=== PATIENT | male | born 1990 | race Hispanic/Latino ===

== ENCOUNTER 2019-02-11 01:33 | Emergency (ER) | payer SELFPAY ==
[2019-02-11 01:53] LABS: APPEARANCE,URINE Clear (CLEAR); BILIRUBIN,URINE Negative (NEGATIVE); COLOR,URINE Yellow (YELLOW); GLUCOSE, URINE (UA) Negative (NEGATIVE); KETONES,URINE Negative (NEGATIVE); LEUKOCYTE ESTERASE ,URINE Negative (NEGATIVE); NITRATE,URINE Negative (NEGATIVE); OCCULT BLOOD,URINE Negative (NEGATIVE); PH,URINE 6.5 (5.0-8.0); PROTEIN,URINE Negative (NEGATIVE); UROBILINOGEN,URINE 0.2 mg/dL (0.2-1.0)
[2019-02-11 01:54] LABS: BASOPHILS % (AUTO) 1.2 % (0.0-5.0); EOSINOPHILS % (AUTO) 0.8 % (0.0-8.0); HEMATOCRIT 42.6 % (42-54); LYMPHOCYTES % (AUTO) 21.1 % (21.0-51.0); MEAN CORPUSCULAR HEMOGLOBIN 30.1 pg (27.0-33.0); MEAN CORPUSCULAR HGB CONC 33.8 g/dL (32.0-36.0); MEAN CORPUSCULAR VOLUME 89.3 fL (79-99); MONOCYTES % (AUTO) 7.2 % (3.0-13.0); NEUTROPHILS % (AUTO) 69.7 % (40.0-77.0); NUCLEATED RED BLOOD CELLS 0.1 % (0.0-0.19); PLATELET COUNT (AUTO) 325 K/uL (130-400); RED BLOOD CELL COUNT(AUTO) 4.77 MIL/uL (4.50-6.20); RED CELL DISTRIBUTION WIDTH 12.7 % (11.0-15.5); WHITE BLOOD COUNT (AUTO) 7.9 K/uL (4.8-10.8)
[2019-02-11 02:01] LABS: AMPHET/METH SCREEN,URINE NEGATIVE (NEGATIVE); BARBITURATE SCREEN, URINE NEGATIVE (NEGATIVE); BENZODIAZEPINES SCREEN,URINE NEGATIVE (NEGATIVE); CANNABINOID SCREEN,URINE NEGATIVE (NEGATIVE); COCAINE SCREEN,URINE NEGATIVE (NEGATIVE); OPIATE SCREEN,URINE NEGATIVE (NEGATIVE); PHENCYCLIDINE SCREEN,URINE NEGATIVE (NEGATIVE)
[2019-02-11 02:02] LABS: CARBON DIOXIDE 30 mmol/L (21-32); CHLORIDE 96 mmol/L (101-111); GLOMERULAR FILTR. RATE CALC 95 mL/min (>60); GLUCOSE,RANDOM 111 mg/dL (70-105); POTASSIUM 3.5 mmol/L (3.5-5.1); SODIUM SERUM 135 mmol/L (136-145); UREA NITROGEN, BLOOD 10 mg/dL (7-18)
[2019-02-11 02:06] LABS: ALANINE AMINOTRANSFERASE 76 U/L (12-78); ALBUMIN 4.2 g/dL (3.5-5.0); ASPARTATE AMINOTRANSFERASE 58 U/L (10-37); BILIRUBIN,TOTAL 0.9 mg/dL (0.2-1.0); TOTAL PROTEIN, SERUM 7.8 g/dL (6.0-8.3)
[2019-02-11 02:08] LABS: SALICYLATE < 2.8 mg/dL (2.8-20.0)
[2019-02-11 02:09] LABS: ACETAMINOPHEN < 1 mcg/mL (10-29); ALCOHOL, BLOOD 226 mg/dL (0-10)
== END 2019-02-11 04:11 | disposition home or self-care (01) ==
LOC: EDH 01:33
DX: F10.129 Alcohol abuse with intoxication, unspecified (principal); R45.851 Suicidal ideations; F32.9 Major depressive disorder, single episode, unspecified; Z72.0 Tobacco use
CPT/HCPCS: 36415; 80053; 80305; 81003; 85025; 93005; 99285; G0480 ×2; G0481

== ENCOUNTER 2021-09-24 05:51 | Emergency (ER) | payer OTHER ==
[~2021-09-24] VITALS: Ht 175.3 cm; Wt 88.5 kg
[2021-09-24 06:24] LABS: POTASSIUM 3.8 mmol/L (3.5-5.1)
[2021-09-24] MEDS ORDERED: CLINDAMYCIN IVPB 600MG/50ML 50 ML IV ONE (06:24)
[2021-09-24 06:25] LABS: BASOPHILS % (AUTO) 0.3 % (0.0-5.0); EOSINOPHILS % (AUTO) 0.7 % (0.0-8.0); HEMATOCRIT 50.9 % (42-54); LYMPHOCYTES % (AUTO) 8.2 % (21.0-51.0); MEAN CORPUSCULAR HEMOGLOBIN 29.1 pg (27.0-33.0); MEAN CORPUSCULAR VOLUME 88.1 fL (79-99); MONOCYTES % (AUTO) 3.8 % (3.0-13.0); NEUTROPHILS % (AUTO) 86.5 % (40.0-77.0); PLATELET COUNT (AUTO) 381 K/uL (130-400); RED BLOOD CELL COUNT(AUTO) 5.78 MIL/uL (4.50-6.20); RED CELL DISTRIBUTION WIDTH 11.9 % (11.0-15.5); WHITE BLOOD COUNT (AUTO) 19.3 K/uL (4.8-10.8)
[2021-09-24 06:41] LABS: BILIRUBIN,TOTAL 1.1 mg/dL (0.2-1.0); TOTAL PROTEIN, SERUM 8.4 g/dL (6.0-8.3)
[2021-09-24] MEDS ORDERED: KETOROLAC 30MG VIAL (30MG/ML) IV SCH (07:00)
[2021-09-24] MEDS ORDERED: 0.9%NACL 1000ML 1,000 ML IV SCH (07:00)
[2021-09-24 07:15] VITALS: BP 129/84
[2021-09-24] MEDS ORDERED: IBUP-2070 PO (07:41)
[2021-09-24] MEDS ORDERED: SULF1TAB42 PO (07:41)
[2021-09-24] MEDS ORDERED: CLINDAMYCIN IVPB 600MG/50ML 50 ML IV SCH (14:00)
== END 2021-09-24 08:04 | disposition home or self-care (01) ==
LOC: EDH 05:51
DX: L03.211 Cellulitis of face (principal); L02.01 Cutaneous abscess of face; Z79.1 Long term (current) use of non-steroidal anti-inflammatories (NSAID)
CPT/HCPCS: 10060; 36415; 80053; 83605; 85025; 87040 ×2; 96365; 96375; 99284; J1885; J3490; 41800

== ENCOUNTER 2022-10-22 02:58 | Emergency (ER) | payer OTHER ==
[~2022-10-22] VITALS: Ht 172.7 cm; Wt 72.6 kg
[~2022-10-22 02:58] MED LIST: IBUP-2070 PO; SULF1TAB42 PO
[2022-10-22 03:46] LABS: BASOPHILS % (AUTO) 1.3 % (0.0-5.0); EOSINOPHILS % (AUTO) 2.1 % (0.0-8.0); HEMATOCRIT 38.3 % (42-54); LYMPHOCYTES % (AUTO) 24.9 % (21.0-51.0); MEAN CORPUSCULAR HEMOGLOBIN 29.2 pg (27.0-33.0); MEAN CORPUSCULAR HGB CONC 33.2 g/dL (32.0-36.0); MONOCYTES % (AUTO) 9.8 % (3.0-13.0); NEUTROPHILS % (AUTO) 61.6 % (40.0-77.0); PLATELET COUNT (AUTO) 419 K/uL (130-400); RED BLOOD CELL COUNT(AUTO) 4.35 MIL/uL (4.50-6.20); RED CELL DISTRIBUTION WIDTH 11.7 % (11.0-15.5); WHITE BLOOD COUNT (AUTO) 7.1 K/uL (4.8-10.8)
[2022-10-22 03:47] LABS: CARBON DIOXIDE 30 mmol/L (21-32); CHLORIDE 102 mmol/L (101-111); GLOMERULAR FILTR. RATE CALC 103 mL/min (>90); GLUCOSE,RANDOM 89 mg/dL (70-105); POTASSIUM 3.9 mmol/L (3.5-5.1); SODIUM SERUM 139 mmol/L (136-145); UREA NITROGEN, BLOOD 16 mg/dL (7-18)
[2022-10-22 03:54] LABS: ALANINE AMINOTRANSFERASE 30 U/L (12-78); ALBUMIN 3.5 g/dL (3.5-5.0); ASPARTATE AMINOTRANSFERASE 16 U/L (10-37); TOTAL PROTEIN, SERUM 7.9 g/dL (6.0-8.3)
[2022-10-22 04:03] LABS: ACETAMINOPHEN < 1 mcg/mL (10-29); SALICYLATE < 2.8 mg/dL (2.8-20.0)
[2022-10-22 04:45] LABS: APPEARANCE,URINE CLEAR (CLEAR); BILIRUBIN,URINE NEGATIVE (NEGATIVE); COLOR,URINE YELLOW (YELLOW); GLUCOSE, URINE (UA) NEGATIVE (NEGATIVE); KETONES,URINE NEGATIVE (NEGATIVE); LEUKOCYTE ESTERASE ,URINE NEGATIVE Leu/uL (NEGATIVE); NITRATE,URINE NEGATIVE (NEGATIVE); PH,URINE 5.5 (5.0-8.0); PROTEIN,URINE NEGATIVE (NEGATIVE); UROBILINOGEN,URINE 0.2 mg/dL (0.2-1.0)
[2022-10-22 04:54] LABS: AMPHET/METH SCREEN,URINE POSITIVE (NEGATIVE); BARBITURATE SCREEN, URINE NEGATIVE (NEGATIVE); BENZODIAZEPINES SCREEN,URINE POSITIVE (NEGATIVE); CANNABINOID SCREEN,URINE NEGATIVE (NEGATIVE); COCAINE SCREEN,URINE POSITIVE (NEGATIVE); OPIATE SCREEN,URINE NEGATIVE (NEGATIVE); PHENCYCLIDINE SCREEN,URINE NEGATIVE (NEGATIVE)
[2022-10-22 05:00] LABS: BACTERIA,URINE FEW /HPF (None Seen); MUCUS,URINE RARE LPF (None Seen)
[2022-10-22 07:44] VITALS: BP 119/65
[2022-10-22 08:55] LABS: CREATINE KINASE, TOTAL 65 U/L (21-232); MYOGLOBIN 44 ng/mL (10-92)
== END 2022-10-22 09:35 | disposition left against medical advice (07) ==
LOC: EDH 02:58 → EDHIP 02:59 → UNDOADMIN 02:59 → EDH 09:35
DX: F19.10 Other psychoactive substance abuse, uncomplicated (principal)
CPT/HCPCS: 99285; 70450; 82550; 83874; 80053; 80305; 85025; 36415; 81001; G0481